=== PATIENT | female | born 1970 | race African-American/Black ===

== ENCOUNTER 2017-03-12 13:21 | Emergency (ER) | payer MEDICAID ==
[~2017-03-12] VITALS: Ht 170.2 cm; Wt 75.0 kg
[~2017-03-12 13:21] MED LIST: ANAS1TAB7 PO
[2017-03-12 13:55] VITALS: BP 122/80
[2017-03-12] MEDS ORDERED: IBUPROFEN 600MG TABLET PO ONE (14:15)
[2017-03-12] MEDS ORDERED: KETOROLAC 30MG/ML VIAL IM ONE (14:15)
== END 2017-03-12 17:17 | disposition home or self-care (01) ==
LOC: ER 14:09
DX: S92.592A Other fracture of left lesser toe(s), initial encounter for closed fracture (principal); W22.8XXA Striking against or struck by other objects, initial encounter; Y93.89 Activity, other specified; Y92.89 Other specified places as the place of occurrence of the external cause; Y99.8 Other external cause status; Z98.890 Other specified postprocedural states
CPT/HCPCS: 73630; 81025; 99284; Z7610

== ENCOUNTER 2018-03-05 12:11 | Emergency (ER) | payer MEDICAID ==
[~2018-03-05] VITALS: Ht 170.2 cm; Wt 80.0 kg
[2018-03-05] MEDS ORDERED: SODIUM CHLORIDE 0.9% 1,000 ML IV ONE (13:57)
[2018-03-05] MEDS ORDERED: KETOROLAC 30MG/ML VIAL IV ONE (14:30)
[2018-03-05 15:02] LABS: CHLORIDE 94 mEq/L (98-107)
[2018-03-05 15:09] LABS: HCG SCREEN NEGATIVE
[2018-03-05 15:11] LABS: D-DIMER 0.26 mg/L FEU (<0.50); INR 1.1; PARTIAL THROMBOPLASTIN TIME 29.6 sec (23.4-31.0); PROTHROMBIN TIME 10.6 sec (9.1-11.1)
[2018-03-05 15:12] LABS: BASOPHILS % 0.5 % (0.0-2.0); EOSINOPHILS % 1.4 % (0.0-5.0); HEMATOCRIT. 40.7 % (36.0-48.0); HEMOGLOBIN. 14.2 g/dL (12.0-16.0); LYMPHOCYTES % 41.5 % (20.0-50.0); MEAN CORPUSCULAR HEMOGLOBIN 30.5 pg (28.0-32.0); MEAN PLATELET VOLUME 9.1 fl (7.4-10.4); MONOCYTES % 9.2 % (2.0-8.0); NEUTROPHILS % 47.4 % (40.0-76.0); PLATELET 215 x1000/uL (130-400); RED BLOOD CELL COUNT 4.68 mill/uL (4.2-5.4); RED CELL DISTRIBUTION WIDTH 12.3 % (11.6-14.6)
[2018-03-05] MEDS ORDERED: POTASSIUM CHLORIDE 20MEQ TABLET SR PO ONE ×2 (15:15→16:30)
[2018-03-05] MEDS ORDERED: ASPIRIN 81MG TABLET PO ONE (15:45)
[2018-03-05] MEDS ORDERED: DIPHENHYDRAMINE 50MG/ML VIAL IV PRN (16:30)
[2018-03-05] MEDS ORDERED: IPRATROPIUM/ALBUTEROL 0.5-3(2.5)MG/3ML NEB INH PRN (16:30)
[2018-03-05] MEDS ORDERED: DOCUSATE SODIUM 100MG CAPSULE PO PRN (16:30)
[2018-03-05] MEDS ORDERED: MAGNESIUM/ALUMINUM HYDROXIDE/SIMETHICONE 30ML UDC PO PRN (16:30)
[2018-03-05] MEDS ORDERED: ENOXAPARIN 40MG/0.4ML SYR SUBCUT SCH (16:30)
[2018-03-05] MEDS ORDERED: CLONIDINE 0.1MG TABLET PO PRN (16:30)
[2018-03-05] MEDS ORDERED: LORAZEPAM 0.5MG TABLET PO PRN (16:30)
[2018-03-05] MEDS ORDERED: ONDANSETRON HCL 4MG/2ML INJ IV PRN (16:30)
[2018-03-05] MEDS ORDERED: GUAIFENESIN 200MG/10ML SUGAR FREE UDC PO PRN (16:30)
[2018-03-05] MEDS ORDERED: ACETAMINOPHEN 325MG TABLET PO PRN (16:30)
[2018-03-05] MEDS ORDERED: NITROGLYCERIN 0.4MG TABLET SL SL PRN (16:30)
[2018-03-05] MEDS ORDERED: KETOROLAC 15MG/ML VIAL IV PRN (17:09)
[2018-03-05 17:25] LABS: ETHANOL BLOOD < 10 mg/dL
[2018-03-05 17:29] LABS: LDL CHOLESTEROL 87 mg/dL (5-100)
[2018-03-05 17:30] LABS: HDL CHOLESTEROL 67 mg/dL (40-59)
[2018-03-05] MEDS ORDERED: METOPROLOL TARTRATE 25MG TABLET PO SCH (21:00)
[2018-03-05] MEDS ORDERED: NA PHOS,M-B/NA PHOS,DI-BA ENEMA 118ML PR PRN (21:00)
[2018-03-05] MEDS ORDERED: ZOLPIDEM TARTRATE 5MG TABLET PO PRN (21:00)
[2018-03-05 23:51] LABS: CREATINE KINASE 102 IU/L (26-192)
[2018-03-05 23:53] LABS: CREATINE KINASE MB FRACTION < 1.0 ng/mL (0.5-3.6)
[2018-03-06 06:37] LABS: CREATINE KINASE 103 IU/L (26-192)
[2018-03-06 06:39] LABS: CREATINE KINASE MB FRACTION < 1.0 ng/mL (0.5-3.6)
[2018-03-06] MEDS ORDERED: ASPIRIN 325MG EC TABLET PO SCH (09:00)
[2018-03-06] MEDS ORDERED: METOPROLOL TARTRATE 25MG TABLET PO SCH (09:32)
[2018-03-06] MEDS ORDERED: FAMOTIDINE 20MG TABLET PO SCH (09:32)
[2018-03-06 11:30] VITALS: BP 120/69
== END 2018-03-06 12:15 | disposition home or self-care (01) ==
LOC: ER 12:11 → CANBEDREQ 03-06 11:58 → ER 03-06 12:15
DX: R07.89 Other chest pain (principal); R73.9 Hyperglycemia, unspecified; E87.8 Other disorders of electrolyte and fluid balance, not elsewhere classified; I10 Essential (primary) hypertension; Z85.3 Personal history of malignant neoplasm of breast; Z98.890 Other specified postprocedural states
CPT/HCPCS: 36415; 71045; 73140; 80053; 80061; 82550; 82553; 83036; 83690; 83880; 84484; 84703; 85025; 85379; 85610; 85730; 86850; 86870; 86900; 86901; 93005; 93970; 96374; 99284; G0482; J1885; J7030